=== PATIENT | female | born 1945 | race Caucasian/White ===

== ENCOUNTER → 2018-08-03 | Outpatient (CLI) | payer OTHER ==
[~2018-08-03] MED LIST: ACID CONTROL75 MG PO; ASPIRIN EC81 M1 PO; ATORVASTATIN CA20 MG PO; BENADRYL25 MG PO; CALCIUM 600 +1 EAC1; CARVEDILOL12.5 MG; CELEBREX; CELEBREX 200 M200 M1 PO; CIPROFLOXACIN500 M1 PO; COZAAR; COZAAR100 MG PO; ENABLEX 7.5 MG7.5 M1 PO; ENABLEX15 MG; FLEXERIL PO; FLONASE 0.05%50 MCG NASAL; GLUCOPHAGE500 MG PO; LEVAQUIN 500 M500 M4 PO; LIPITOR; LYRICA; LYRICA 75 MG CA75 MG PO; MEDROLDOSEPACK PO; METFORMIN; PHENERGAN 25 MG25 M1 PO; PREDNISONE 10 M10 M1; PROAIR HFA8.5 GM IH; PROAIR HFA8.5 GM INH; PROTONIX40 M2 PO; TESSALON PERLE100 MG; TUSSIONEX PENN473 ML PO; VALIUM5 MG PO; VICODIN 5-5001 EACH; VITAMIN D-32000 UNIT; VITAMIN D1000 UNI1 PO; ZOFRAN ODT4 MG PO
== END ==
LOC: M.RAD 13:00
DX: Z12.31 Encounter for screening mammogram for malignant neoplasm of breast (principal)

== ENCOUNTER → 2019-08-28 | Outpatient (CLI) | payer OTHER | LOC: M.RAD 06:39 | DX: Z12.31 Encounter for screening mammogram for malignant neoplasm of breast (principal) ==

== ENCOUNTER → 2019-12-24 | Outpatient (CLI) | payer OTHER | LOC: M.ULTRA 15:00 | PROVIDERS: ATTEND Emergency Medicine | DX: M79.89 Other specified soft tissue disorders (principal); M79.671 Pain in right foot; L53.9 Erythematous condition, unspecified ==

== ENCOUNTER → 2020-08-19 | Outpatient (CLI) | payer OTHER | LOC: M.RAD 14:28 | PROVIDERS: ATTEND Family Medicine | DX: Z12.31 Encounter for screening mammogram for malignant neoplasm of breast (principal) ==

== ENCOUNTER → 2021-05-20 | Outpatient (CLI) | payer OTHER ==
--- NOTE | 2021-05-20 17:24 | 2DMMODE ---
[place] [address] 2 D/M-MODE ECHOCARDIOGRAM Name: EILEEN LUIS Room: [facility]#: [id number] Admission: 05/20/21 Attend Phys: Dylan Thao, Discharge: Date of : 47 Date of Service: 05/20/21 1724 Report #: [id number] THIS REPORT FOR: cc: Jimbo Ball MD, Matthew W. MD Liston, Michael J. MD [facility] ~ APPROVED REPORT Study performed: 05/20/2021 08:13:29 EXAM: Comprehensive 2D, Doppler, and color-flow Echocardiogram Patient Location: Out-Patient BSA: 1.74 HR: 85 bpm BP: 130/82 mmHg Other Information Study Quality: Good Indications Cardiomyopathy 2D Dimensions IVSd: 11.59 (7-11mm) LVOT Diam: 19.99 (18-24mm) LVDd: 53.88 mm PWd: 11.77 (7-11mm) Ascending Ao: 31.59 (22-36mm) LVDs: 41.64 (25-40mm) Aortic Root: 30.24 mm Volumes Left Atrial Volume (Systole) LA ESV Index: 16.50 mL/m2 Aortic Valve AoV Peak Severiano.: 1.13 m/s AO Peak Gr.: 5.11 mmHg LVOT Max P.13 mmHg AO Mean Gr.: 3.05 mmHg LVOT Mean P.50 mmHg LVOT Max V: 0.53 m/s AO V2 VTI: 22.44 cm LVOT Mean V: 0.32 m/s TIFFANY (VTI): 1.24 cm2 LVOT V1 VTI: 8.90 cm Mitral Valve MV Decel. Time: 108.80 [place] [address] 2 D/M-MODE ECHOCARDIOGRAM Name: EILEEN LUIS Room: [facility]#: [id number] Admission: 05/20/21 Attend Phys: Dylan Thao, Discharge: Date of : 47 Date of Service: 05/20/21 1724 Report #: [id number] MV PHT: 31.55 ms MVA (PHT): 6.97 cm2 TDI Medial E' Severiano.: 0.13 m/s Lateral E' Severiano.: 0.11 m/s Pulmonary Valve PV Peak Severiano.: 0.95 m/s PV Peak Gr.: 3.61 mmHg Tricuspid Valve RAP Estimate: 5.00 mmHg TR Peak Gr.: 20.90 mmHg RVSP: 25.90 mmHg PA Pressure: 25.90 mmHg Left Ventricle Left ventricle is moderately dilated. There is akinesis of the anterior wall and septum. Mild concentric left ventricular hypertrophy. Left ventricular systolic function is severely decreased. LVEF is 25-30%. Transmitral Doppler flow pattern suggests restrictive physiology. Right Ventricle The right ventricle is normal size. The right ventricular systolic function is normal. Atria The left atrium size is normal. The right atrium size is normal. Aortic Valve The aortic valve is normal in structure. No aortic regurgitation is present. There is no aortic valvular stenosis. Mitral Valve Mild mitral annular calcification. Mild mitral regurgitation. No evidence of mitral valve stenosis. Tricuspid Valve The tricuspid valve is normal in structure. Mild tricuspid regurgitation. Pulmonic Valve The pulmonary valve is normal in structure. There is no [place]mon[place] [address] 2 D/M-MODE ECHOCARDIOGRAM Name: EILEEN LUIS Room: [facility]#: [id number] Admission: 05/20/21 Attend Phys: Dylan Thao, Discharge: Date of : 47 Date of Service: 05/20/21 1724 Report #: [id number] Great Vessels The aortic root is normal in size. IVC is normal in size and collapses >50% with inspiration. Pericardium There is no pericardial effusion. <Conclusion> Left ventricle is moderately dilated. Mild concentric left ventricular hypertrophy. Left ventricular systolic function is severely decreased. LVEF is 25-30%. Transmitral Doppler flow pattern suggests restrictive physiology. There is akinesis of the anterior wall and septum. Mild mitral annular calcification. Mild mitral regurgitation. Mild tricuspid regurgitation. <ELECTRONICALLY SIGNED> By: Dylan Thao MD, FACC 05/20/211723 23 23 Dylan Thao MD, FACC /INF
== END ==
LOC: M.CRD 07:33
PROVIDERS: ATTEND Internal Medicine Cardiovascular Disease
DX: I08.1 Rheumatic disorders of both mitral and tricuspid valves (principal); I42.8 Other cardiomyopathies

== ENCOUNTER → 2021-08-24 | Outpatient (CLI) | payer OTHER | LOC: M.RAD 08-19 11:00 | PROVIDERS: ATTEND Family Medicine | DX: Z12.31 Encounter for screening mammogram for malignant neoplasm of breast (principal) ==

== ENCOUNTER → 2021-08-27 | Outpatient (CLI) | payer OTHER ==
--- NOTE | 2021-08-27 17:18 | CARDNUC ---
[place] [address] CARDIAC NUCLEAR IMAGING REPORT Name: EILEEN LUIS Room: [facility]#: [id number] Admission: 08/27/21 Attend Phys: Dylan Thao, Discharge: Date of : 47 Date of Service: 08/27/21 1717 Report #: [id number] THIS REPORT FOR: cc: Jimbo Ball MD, Matthew W. MD Liston, Michael J. MD [facility] ~ APPROVED REPORT Imaging Protocol: Rest Tc-99m/Stress Tc-99m 1 day Study performed: 08/27/2021 12:00:00 Indication: Cardiomyopathy, CAD Patient Location: Out-Patient Stress Tech: MARY YA Stress Nurse: Taylor Sung RN NM Tech:RADHA Gunn Ht: 5 ft 1 in Wt: 163 lbs BSA: 1.73 m2 HR: 90 bpm BP: 214/49 mmHg BMI: 30.79 Rhythm: LBBB Medical History Medical History: Hyperlipidemia, CAD Medications: Aspirin, Carvedilol, Atorvastatin Allergies: codeine Cardiac Risk Factors: Tobacco History (Former), Hyperlipidemia, HTN, FHX of CAD, DM Resting Data Rest SPECT myocardial perfusion imaging was performed in supine position 30 minutes following the intravenous injection of 11.4 mCi of Tc-99m Sestamibi. Time of rest injection: 1220 Date: 08/27/2021 The images were gated to evaluate regional wall motion and calculate left ventricular ejection fraction. Administration Route: IV Pharmacologic Stress Pharmacologic stress test was performed by injecting Regadenoson 0.4 mg IV push over 10-15 seconds immediately followed by the intravenous injection of 33.3 mCi of Tc-99m Sestamibi. Time of stress injection: 1320 Date: 08/27/2021 Administration Route: [place] [address] CARDIAC NUCLEAR IMAGING REPORT Name: EILEEN LUIS Room: [facility]#: [id number] Admission: 08/27/21 Attend Phys: Dylan Thao, Discharge: Date of : 47 Date of Service: 08/27/21 1717 Report #: [id number] Gated Stress SPECT was performed 40 minutes after stress injection. The images were gated to evaluate regional wall motion and calculate left ventricular ejection fraction. Prone imaging was performed. Stress Test Details Stress Test: Pharmacologic stress testing performed using 0.4 mg of regadenoson per 5 mL given IV over 10 seconds. HR Max Heart Rate (APMHR): 146 bpm Resting HR: 90 bpm Target HR (85% APMHR): 124 bpm Max HR Achieved: 117 bpm % of APMHR: 80 Recovery HR: 113 bpm HR response to stress: Normal HR response to stress BP Resting BP: 214/49 mmHg Max BP: 173/55 mmHg Recovery BP: 177/77 mmHg BP response to stress: Baseline HTN ECG Resting ECG: Sinus rhythm with left bundle branch block Stress ECG: Sinus tachycardia with left bundle branch block ST Change: None Arrhythmia: None Recovery ECG: Sinus tachycardia with left bundle branch block Recovery ST Change: None Recovery Arrhythmia: None Clinical Reason for Termination: Completed protocol Stress Symptoms: None The patient tolerated Lexiscan infusion without significant cardiac symptoms. Stress ECG Conclusion The baseline twelve-lead EKG shows sinus rhythm with left bundle branch block. EKGs obtained during and post Lexiscan infusion show sinus rhythm and sinus tachycardia with persistent left bundle branch block. No stress-induced arrhythmias [place] [address] CARDIAC NUCLEAR IMAGING REPORT Name: EILEEN LUIS Room: [facility]#: [id number] Admission: 08/27/21 Attend Phys: Dylan Thao, Discharge: Date of : 47 Date of Service: 08/27/21 1717 Report #: [id number] Study: Good Artifact: No artifact Study Data At rest, the left ventricular ejection fraction was 17%.. Post stress, the left ventricular ejection was 20%.. TID = 0.98. Perfusion Perfusion images show a small in size severe intensity fixed defect involving the apex. No reversible defects are identified. Wall Motion Global LV systolic function appears severely decreased. There is left ventricular dyssynergy consistent with underlying bundle branch block. Nuclear Conclusion ECG Findings: non-diagnostic Clinical Findings: negative for ischemia Nuclear Findings: negative for ischemia Exercise Capacity: not assessed Left Ventricular Function: abnormal Risk Study: high Perfusion images show evidence of possible apical infarct. Global LV systolic function is severely decreased and out of proportion with underlying perfusion abnormalities suggesting a nonischemic or combined cardiomyopathy. Left ventricular systolic function is severely decreased. This is a high risk study due to severe left ventricular systolic dysfunction. <Conclusion> The baseline twelve-lead EKG shows sinus rhythm with left bundle branch block. EKGs obtained during and post Lexiscan infusion show sinus rhythm and sinus tachycardia with persistent left bundle branch block. No stress-induced arrhythmias noted. <ELECTRONICALLY SIGNED> By: Dylan Thao MD, FACC 08/27/211716 16 16 Dylan Thao MD, FACC /INF
== END ==
LOC: M.NUC 08-21 09:57
PROVIDERS: ATTEND Internal Medicine Cardiovascular Disease
DX: I42.8 Other cardiomyopathies (principal); I44.7 Left bundle-branch block, unspecified